=== PATIENT | female | born 1970 | race Two or more races ===

== ENCOUNTER 2022-01-07 12:42 | Outpatient (CLI) | payer OTHER ==
[~2022-01-07 12:42] MED LIST: CLONIDINE1 EAC1; COZAAR25 MG; TRANDATE300 M1
== END 2022-01-07 12:49 | disposition home or self-care (01) ==
LOC: RAD 12:42
DX: M54.2 Cervicalgia (principal); M54.6 Pain in thoracic spine; M54.51 Vertebrogenic low back pain